=== PATIENT | male | born 1955 | race Caucasian/White ===

== ENCOUNTER → 2018-11-06 | Outpatient (CLI) | payer BC, OTHER ==
[~2018-11-06] VITALS: Ht 177.8 cm; Wt 81.6 kg
[~2018-11-06] MED LIST: ASPIR 8181 MG PO; CRESTOR20 MG PO; XANAX 0.25 MG0.25 MG PO
[2018-11-06 07:06] VITALS: BP 135/69
--- NOTE | 2018-11-06 08:48 | CATHLAB ---
[facility] [place] [address] INVASIVE PROCEDURE REPORT Name: IVAN ARCOSN HILARIO Room #: [facility]phan[facility] [id number] ������������� Admission: 11/06/18 ������������� Attend Phys: Nathen Bey, Discharge: ��� ������������� ��� Date of : 59 Date of Service: 11/06/18 0848 �� Report #: [id number] �������� ��������������������������������������������[id number] THIS REPORT FOR: //name// APPROVED REPORT Study performed: 11/06/2018 07:23:58 Patient Details Patient Status: Out-Patient Room #: The patient is a 63 year-old male Event Personnel Nathen Bey Pick Up Attendant, Joesph Lee RN RN, Carlos Birmingham RN, Soha Cunningham, Lilly Mendoza Monitor Procedures Performed Art Access - R femoral artery* Left Heart Cath w/or w/o Coronaries [id number] [facility] Hemostasis w/ Mynx 60736 Initial Mod Sed Same Phys/QHP Gr5y [id number] Mod Sed Same Phys/QHP Ea [id number] Indication Chest pain Procedure Narrative The Right Groin^ was infiltrated with 1% Lidocaine subcutaneous anesthesia. A PINNACLE 6FR Sheath #[id number] sheath was inserted into the RFA^. Coronary angiography was performed using coronary diagnostic catheters. The right coronary system was accessed and visualized with a jr4 catheter. The left coronary system was accessed and visualized with a jl4 catheter. The left ventricle was accessed and visualized with a angle pig catheter. Left ventriculogram was performed in 30 degree projection. Closure device was deployed with a Fr MYNXGRIP 6/7F #[id number]. A hematoma occurred. Held post pressure to express the hematoma. outcome good. Intraoperative Conscious Sedation Sedation start time: 744 Case end Time: 823 Fentanyl 50 mcg Versed 1 mg Fluoro Time: 3.25 minutes Dose: DAP 69779.10 cGycm2 531 mGy Contrast Type and Amount: Omnipaque 140 ml Coronary Angiography [facility] [place] [address] INVASIVE PROCEDURE REPORT Name: ALLISON ARCOS Room #: REG [facility]#: [id number] ������������� Admission: 11/06/18 ������������� Attend Phys: Nathen Bey, Discharge: ��� ������������� ��� Date of : 59 Date of Service: 11/06/18 0848 �� Report #: [id number] �������� ��������������������������������������������[id number] The patient's coronary anatomy is right dominant. Diagnostic Cath Left Main Normal, short left main LAD Minimal proximal to mid vessel LAD plaquing (10-20%), otherwise normal vessel. Diagonal 1 Small to moderate in size, angiographically normal. Diagonal 2 Small second diagonal branch, angiographically normal. Circumflex Nondominant circumflex, large in caliber and comprised of a single distally arising marginal branch. OM1 Normal distal OM 1 Right Coronary Right coronary was dominant with minimal proximal plaquing R PDA Large posterior descending, angiographically normal. RPLV Large posterolateral branch, angiographically normal Left Ventriculography The left ventricle is normal in size with normal contractility. The left ventricular ejection fraction is estimated to be 60-65%. Left ventricular wall motion abnormalities are not present. There is no mitral insufficiency. Hemodynamics The aortic pressure is 122/65 mmHg with a mean of 89 mmHg. The left ventricular pressure is 122/12 mmHg with a mean of mmHg. The left ventricular end diastolic pressure is 25 mmHg. There was no gradient across the aortic valve upon pullback. Pullback from the left ventricle to the aorta revealed no gradient across the aortic valve. Conclusion 1. Normal global and regional left ventricular systolic function. EF 65% 2. Normal, short left main 3. Minimal proximal to mid LAD and proximal right coronary plaquing, otherwise normal angiography ��������������������������������������������� <ELECTRONICALLY SIGNED> ���������������������������������������� By: Nathen Bey MD, FACC ��������������������������������������������� 11/06/18 0848 Nathen Bey MD, FACC /INF
== END | disposition home or self-care (01) ==
LOC: CATH 06:36
DX: R07.9 Chest pain, unspecified (principal); Z87.891 Personal history of nicotine dependence; Z79.82 Long term (current) use of aspirin; Z79.899 Other long term (current) drug therapy